=== PATIENT | male | born 1960 | race Caucasian/White ===

== ENCOUNTER 2017-11-01 17:57 | Emergency (ER) | payer MEDICAID ==
[2017-11-01 18:19] VITALS: TEMP 97.2
[2017-11-01] MEDS ORDERED: LORAZEPAM 2 MG/ML 10ML MDV 2 MG/ML VIAL IV PRN (18:20)
[2017-11-01] MEDS ORDERED: ONDANSETRON HCL 4 MG/2 ML 4 MG in SODIUM CHLORIDE 0.9% 100 ML 100 ML IV ONE (18:20)
[2017-11-01] MEDS ORDERED: SODIUM CHLORIDE 0.9% 1000ML 1,000 ML IV ONE (18:20)
[2017-11-01] MEDS ORDERED: ONDANSETRON HCL 4 MG/2 ML SOL IV ONE (18:23)
[2017-11-01] MEDS ORDERED: LORAZEPAM 2 MG/ML SOL ONE (18:24)
[2017-11-01] MEDS ORDERED: ONDANSETRON HCL 4 MG/2 ML SOL ONE (18:24)
[2017-11-01] MEDS ORDERED: HYDRALAZINE HYDROCHLORIDE 20 MG/ML SOL IV PRN ×2 (18:42→19:27)
[2017-11-01 19:01] LABS: BASOPHILS % (AUTO) 1 % (0-3); EOSINOPHILS % (AUTO) 0 % (0-9); HEMATOCRIT 45 % (39-53); MEAN CORPUSCULAR HGB CONC 34.2 gm/dl (32.0-36.0); MEAN CORPUSCULAR VOLUME 86 fL (80-100); MONOCYTES % (AUTO) 6.6 % (0-12); NEUTROPHILS % (AUTO) 83.7 % (37-80)
[2017-11-01 19:17] LABS: ALBUMIN 3.5 gm/dl (3.4-5.0); CALCIUM 8.4 mg/dl (8.5-10.1); POTASSIUM 4.3 mMol/L (3.5-5.1)
[2017-11-01] MEDS ORDERED: HYDRALAZINE HYDROCHLORIDE 20 MG/ML SOL ONE (19:29)
[2017-11-01] MEDS ORDERED: ALPRAZOLAM 0.25 MG TAB PO ONE (20:12)
[2017-11-01] MEDS ORDERED: ALPRAZOLAM 0.25 MG TAB ONE (20:15)
[2017-11-01 20:46] VITALS: BP 167/99; PULSE 104; RESP 20; O2SAT 99
== END 2017-11-01 20:26 | disposition home or self-care (01) | DRG 880 ==
LOC: ED 17:57
DX: F41.9 Anxiety disorder, unspecified (principal); I10 Essential (primary) hypertension; R10.9 Unspecified abdominal pain; R11.2 Nausea with vomiting, unspecified
CPT/HCPCS: 36415; 80053; 85025; 96365; 96374; 96375; 99285; J0360; J2060; J2405; A9270-GY

== ENCOUNTER 2017-12-14 07:15 | Day surgery (SDC) | payer MEDICAID, OTHER ==
[2017-12-14] MEDS ORDERED: PROPOFOL 500 MG/50 ML EMU IV ONE ×2 (07:19→08:48)
[2017-12-14] MEDS ORDERED: MIDAZOLAM 2 MG/2 ML SOL ONE (08:32)
[2017-12-14] MEDS ORDERED: PROPOFOL 10 MG/ML EMU IV ONE (08:48)
[2017-12-14 09:27] VITALS: RESP 16
[2017-12-14 09:37] VITALS: BP 133/89; PULSE 70; TEMP 97; O2SAT 97
== END 2017-12-14 10:05 | disposition home or self-care (01) | DRG 379 ==
LOC: SURG 07:15
PROVIDERS: ATTEND Surgery
DX: K62.5 Hemorrhage of anus and rectum (principal); D12.2 Benign neoplasm of ascending colon; K64.4 Residual hemorrhoidal skin tags; K57.30 Diverticulosis of large intestine without perforation or abscess without bleeding; D12.5 Benign neoplasm of sigmoid colon; D12.3 Benign neoplasm of transverse colon
CPT/HCPCS: 82962; J2250; J2704

== ENCOUNTER 2018-04-20 11:35 | Emergency (ER) | payer OTHER, BC ==
[2018-04-20 11:36] VITALS: O2SAT 97
[2018-04-20 12:06] VITALS: BP 140/94; PULSE 78; RESP 20; TEMP 98.8
[2018-04-20] MEDS ORDERED: LIDOCAINE HCL 2% (VISCOUS) 20 ML SOL MT ONE (12:26)
[2018-04-20] MEDS ORDERED: PANTOPRAZOLE SODIUM 40 MG ECT PO ONE ×2 (12:26→12:37)
[2018-04-20] MEDS ORDERED: ALUMINUM/MAGNESIUM 30 ML SUS PO ONE (12:26)
[2018-04-20] MEDS ORDERED: ACETAMINOPHEN 325 MG PO ONE (12:28)
[2018-04-20] MEDS ORDERED: ALUMINUM/MAGNESIUM 30 ML SUS ONE (12:37)
[2018-04-20] MEDS ORDERED: LIDOCAINE HCL 2% (VISCOUS) 20 ML SOL ONE (12:38)
[2018-04-20] MEDS ORDERED: ACETAMINOPHEN 325 MG ONE (12:38)
[2018-04-20 13:08] LABS: BASOPHILS % (AUTO) 1 % (0-3); EOSINOPHILS % (AUTO) 1 % (0-9); HEMATOCRIT 44 % (39-53); HEMOGLOBIN 14.3 gm/dl (13.5-17.7); LYMPHOCYTES % (AUTO) 13.66 % (10-50); MEAN CORPUSCULAR HEMOGLOBIN 29.3 pg (27.0-32.0); MEAN CORPUSCULAR HGB CONC 32.8 gm/dl (32.0-36.0); MEAN CORPUSCULAR VOLUME 89 fL (80-100); MONOCYTES % (AUTO) 6.6 % (0-12); NEUTROPHILS % (AUTO) 77.8 % (37-80)
[2018-04-20 13:19] LABS: ALBUMIN 3.4 gm/dl (3.4-5.0); BILIRUBIN,TOTAL 0.3 mg/dl (0.2-1.0); CALCIUM 8.3 mg/dl (8.5-10.1); CARBON DIOXIDE 28.5 mEq/L (21-32); CREATININE 0.81 mg/dl (0.80-1.30); POTASSIUM 3.9 mMol/L (3.5-5.1); TOTAL PROTEIN 6.9 gm/dl (6.4-8.2)
[2018-04-20 13:19] LABS: APPEARANCE,URINE Clear; BILIRUBIN,URINE NEGATIVE (NEGATIVE); COLOR,URINE Yellow; GLUCOSE, URINE (UA) 2+ (NEGATIVE); KETONES,URINE NEGATIVE (NEGATIVE); LEUKOCYTE ESTERASE ,URINE NEGATIVE (NEGATIVE); NITRATE,URINE NEGATIVE (NEGATIVE); OCCULT BLOOD,URINE TRACE INTACT (NEG-TRACE); UROBILINOGEN,URINE 0.2 (0.2-1.0 EU)
[2018-04-20 13:29] LABS: EPITHELIAL CELLS 0-1 (SQUAMOUS); RBC,URINE 0-3 (0-3AV/HPF); WBC,URINE NEG (0-5AV/HPF)
[2018-04-20 13:30] LABS: BACTERIA RARE (< 1+); CRYSTALS NEGATIVE (0-3 AVE/HPF)
== END 2018-04-20 14:30 | disposition home or self-care (01) | DRG 392 ==
LOC: ED 11:35
DX: R10.13 Epigastric pain (principal); K21.9 Gastro-esophageal reflux disease without esophagitis; V43.52XA Car driver injured in collision with other type car in traffic accident, initial encounter
CPT/HCPCS: 36415; 71046; 80053; 81001; 85025; 99282; 99283; A9270-GY

== ENCOUNTER 2018-04-23 12:11 | Emergency (ER) | payer OTHER, BC ==
[2018-04-23 12:27] LABS: BASOPHILS % (AUTO) 0 % (0-3); EOSINOPHILS % (AUTO) 0 % (0-9); HEMATOCRIT 48 % (39-53); HEMOGLOBIN 15.7 gm/dl (13.5-17.7); LYMPHOCYTES % (AUTO) 8.118 % (10-50); MEAN CORPUSCULAR HEMOGLOBIN 28.9 pg (27.0-32.0); MEAN CORPUSCULAR HGB CONC 32.5 gm/dl (32.0-36.0); MEAN CORPUSCULAR VOLUME 89 fL (80-100); MONOCYTES % (AUTO) 4.3 % (0-12); NEUTROPHILS % (AUTO) 87.1 % (37-80)
[2018-04-23] MEDS ORDERED: LORAZEPAM 2 MG/ML SOL IV ONE (12:38)
[2018-04-23] MEDS ORDERED: LORAZEPAM 2 MG/ML SOL ONE (12:43)
[2018-04-23] MEDS ORDERED: SODIUM CHLORIDE 0.9% 1000ML 1,000 ML IV SCH (12:45)
[2018-04-23 12:49] LABS: ALBUMIN 3.8 gm/dl (3.4-5.0); ALKALINE PHOSPHATASE 77 IU/L (46-116); ALT 30 IU/L (14-63); AST 16 IU/L (15-37); BILIRUBIN,TOTAL 0.7 mg/dl (0.2-1.0); BLOOD UREA NITROGEN 25 mg/dl (7-18); CALCIUM 8.8 mg/dl (8.5-10.1); CARBON DIOXIDE 20.9 mEq/L (21-32); CHLORIDE 96 mMol/L (98-107); CREATININE 1.06 mg/dl (0.80-1.30); POTASSIUM 4.2 mMol/L (3.5-5.1); SODIUM 132 mMol/L (136-145); TOTAL PROTEIN 7.9 gm/dl (6.4-8.2); TROP I < 0.017 ng/ml (0.000-0.056)
[2018-04-23 12:50] LABS: GLUCOSE 443 mg/dl (74-106)
[2018-04-23] MEDS ORDERED: INSULIN HUMAN REGULAR 100 U/ML SOL SC ONE (12:55)
[2018-04-23] MEDS ORDERED: LABETALOL HYDROCHLORIDE 5 MG/ML SOL IV ONE ×2 (12:57→13:01)
[2018-04-23] MEDS ORDERED: INSULIN HUMAN REGULAR 100 U/ML SOL ONE (13:02)
[2018-04-23 13:18] VITALS: TEMP 99.4
[2018-04-23 14:41] VITALS: BP 134/84; PULSE 83; RESP 24; O2SAT 94
== END 2018-04-23 14:52 | disposition home or self-care (01) | DRG 880 ==
LOC: ED 12:11
DX: F41.9 Anxiety disorder, unspecified (principal); R03.0 Elevated blood-pressure reading, without diagnosis of hypertension; E11.8 Type 2 diabetes mellitus with unspecified complications; R07.89 Other chest pain
CPT/HCPCS: 80053; 82009; 82962; 84484; 85025; 93005; 96365; 96372; 96374; 96375; 99284; 99285; J1815; J2060; J3490

== ENCOUNTER 2018-04-26 07:28 | Emergency (ER) | payer OTHER, BC ==
[2018-04-26] MEDS ORDERED: ASPIRIN 81 MG CHEWABLE CTB PO ONE (07:38)
[2018-04-26] MEDS ORDERED: LORAZEPAM 2 MG/ML SOL IV ONE (07:38)
[2018-04-26] MEDS ORDERED: LORAZEPAM 2 MG/ML SOL ONE (07:42)
[2018-04-26] MEDS ORDERED: ASPIRIN 81 MG CHEWABLE CTB ONE (07:42)
[2018-04-26 07:52] LABS: BASOPHILS % (AUTO) 1 % (0-3); EOSINOPHILS % (AUTO) 1 % (0-9); HEMATOCRIT 50 % (39-53); HEMOGLOBIN 16.2 gm/dl (13.5-17.7); LYMPHOCYTES % (AUTO) 15.65 % (10-50); MEAN CORPUSCULAR HEMOGLOBIN 28.7 pg (27.0-32.0); MEAN CORPUSCULAR HGB CONC 32.3 gm/dl (32.0-36.0); MEAN CORPUSCULAR VOLUME 89 fL (80-100); MONOCYTES % (AUTO) 7.4 % (0-12); NEUTROPHILS % (AUTO) 75.3 % (37-80)
[2018-04-26 08:03] LABS: ALBUMIN 3.5 gm/dl (3.4-5.0); ALKALINE PHOSPHATASE 77 IU/L (46-116); ALT 34 IU/L (14-63); AST 17 IU/L (15-37); BILIRUBIN,TOTAL 0.4 mg/dl (0.2-1.0); BLOOD UREA NITROGEN 20 mg/dl (7-18); CALCIUM 8.7 mg/dl (8.5-10.1); CARBON DIOXIDE 26.5 mEq/L (21-32); CHLORIDE 95 mMol/L (98-107); CREATININE 1.01 mg/dl (0.80-1.30); GLUCOSE 252 mg/dl (74-106); SODIUM 131 mMol/L (136-145); TOTAL PROTEIN 7.5 gm/dl (6.4-8.2); TROP I < 0.017 ng/ml (0.000-0.056)
[2018-04-26] MEDS ORDERED: METOPROLOL TARTRATE 5 MG/5 ML SOL IV ONE ×4 (08:59→09:38)
[2018-04-26] MEDS ORDERED: ONDANSETRON HCL 4 MG/2 ML SOL IV ONE (08:59)
[2018-04-26] MEDS ORDERED: ONDANSETRON HCL 4 MG/2 ML SOL ONE (09:00)
[2018-04-26] MEDS: SODIUM CHLORIDE 0.9% FLUSH 10 ML SOL IV PRN ×3 (09:07→10:13)
[2018-04-26 09:15] VITALS: TEMP 98.8
[2018-04-26] MEDS ORDERED: DILTIAZEM 5 MG/ML SOL IV ONE ×2 (10:03→10:05)
[2018-04-26 10:17] VITALS: O2SAT 94
[2018-04-26] MEDS ORDERED: PROCHLORPERAZINE EDISYLATE 5 MG/ML SOL IM ONE (10:36)
[2018-04-26] MEDS ORDERED: PROCHLORPERAZINE EDISYLATE 5 MG/ML SOL ONE (10:38)
[2018-04-26] MEDS ORDERED: ALPRAZOLAM 0.25 MG TAB ONE (10:41)
[2018-04-26] MEDS ORDERED: PROCHLORPERAZINE EDISYLATE 5 MG/ML SOL IV ONE (10:44)
[2018-04-26 11:55] VITALS: BP 175/109; PULSE 64; RESP 20
[2018-04-26] MEDS ORDERED: ALPRAZOLAM 0.25 MG TAB PO SCH (21:00)
== END 2018-04-26 11:48 | disposition home or self-care (01) | DRG 880 ==
LOC: ED 07:28
DX: F41.9 Anxiety disorder, unspecified (principal); I10 Essential (primary) hypertension
CPT/HCPCS: 80053; 82962; 83880; 84484; 85025; 93005; 96374; 96375; 99284; 99285; J0780; J2060; J2405; A9270-GY; J3490

== ENCOUNTER 2018-05-04 10:42 | Day surgery (SDC) | payer BC ==
[2018-05-04] MEDS ORDERED: DEXTROSE 50% 1 VIAL SOL IV ONE (12:01)
[2018-05-04] MEDS ORDERED: MIDAZOLAM 2 MG/2 ML SOL ONE (13:12)
[2018-05-04] MEDS ORDERED: FENTANYL 100MCG/2ML SOL ONE (13:13)
[2018-05-04] MEDS: DEXAMETHASONE SOD PHOS PF 10 MG/ML SOL IJ ONE ×2 (13:27→13:32)
[2018-05-04 13:39] VITALS: BP 130/87; PULSE 62; RESP 20; TEMP 97; O2SAT 95
== END 2018-05-04 14:23 | disposition home or self-care (01) ==
LOC: SURG 10:42
PROVIDERS: ATTEND Nurse Anesthetist, Certified Registered
DX: M54.12 Radiculopathy, cervical region (principal)
CPT/HCPCS: 82962; J2250; J2795; J3010; J1100

== ENCOUNTER 2019-03-13 05:07 | Inpatient (IN) | payer BC ==
[2019-03-13] MEDS ORDERED: ACETAMINOPHEN 500 MG 500 MG TAB PO ONE (05:29)
[2019-03-13] MEDS ORDERED: ACETAMINOPHEN 500 MG 500 MG TAB ONE (05:48)
[2019-03-13 05:54] LABS: BASOPHILS % (AUTO) 1 % (0-3); EOSINOPHILS % (AUTO) 0 % (0-9); HEMATOCRIT 44 % (39-53); HEMOGLOBIN 14.9 gm/dl (13.5-17.7); LYMPHOCYTES % (AUTO) 4.7 % (10-50); MEAN CORPUSCULAR HEMOGLOBIN 29.4 pg (27.0-32.0); MEAN CORPUSCULAR HGB CONC 33.5 gm/dl (32.0-36.0); MEAN CORPUSCULAR VOLUME 88 fL (80-100); MONOCYTES % (AUTO) 8.5 % (0-12); NEUTROPHILS % (AUTO) 86.1 % (37-80)
[2019-03-13 06:27] LABS: LACTIC ACID 1.7 mMol/L (0.0-2.0)
[2019-03-13 06:29] LABS: APPEARANCE,URINE Clear; BILIRUBIN,URINE NEGATIVE (NEGATIVE); COLOR,URINE Yellow; GLUCOSE, URINE (UA) 2+ (NEGATIVE); KETONES,URINE TRACE (NEGATIVE); LEUKOCYTE ESTERASE ,URINE NEGATIVE (NEGATIVE); NITRATE,URINE NEGATIVE (NEGATIVE); OCCULT BLOOD,URINE NEGATIVE (NEG-TRACE); PH,URINE 5.5; UROBILINOGEN,URINE 0.2 (0.2-1.0 EU)
[2019-03-13 06:32] LABS: BILIRUBIN,TOTAL 0.4 mg/dl (0.2-1.0); CALCIUM 8.7 mg/dl (8.5-10.1); CARBON DIOXIDE 24.2 mEq/L (21-32); CREATININE 1.07 mg/dl (0.80-1.30); POTASSIUM 3.5 mMol/L (3.5-5.1)
[2019-03-13 06:33] LABS: ALBUMIN 3.4 gm/dl (3.4-5.0); TOTAL PROTEIN 7.3 gm/dl (6.4-8.2)
[2019-03-13 06:39] LABS: BACTERIA RARE (< 1+); CRYSTALS NEGATIVE (0-3 AVE/HPF); EPITHELIAL CELLS 0-2 (SQUAMOUS); RBC,URINE 0-2 (0-3AV/HPF); WBC,URINE 0-2 (0-5AV/HPF)
[2019-03-13] MEDS ORDERED: SODIUM CHLORIDE 0.9% 500 ML 500 ML IV ONE (06:43)
[2019-03-13] MEDS: SODIUM CHLORIDE 0.9% FLUSH 10 ML SOL IV PRN (06:56)
[2019-03-13] MEDS ORDERED: FENTANYL 100MCG/2ML SOL IV ONE (07:21)
[2019-03-13] MEDS ORDERED: LORAZEPAM 0.5 MG TAB PO PRN (07:21)
[2019-03-13] MEDS ORDERED: NOVOLOG FLEXPEN SC SCH (09:00)
[2019-03-13] MEDS: NOVOLOG FLEXPEN SC SCH ×4 (09:16→21:32)
[2019-03-13] MEDS: OXYCODONE HYDROCHLORIDE 5 MG TAB PO PRN ×3 (09:16→21:38)
[2019-03-13] MEDS: FLUOXETINE HYDROCHLORIDE 10 MG CAP PO SCH (09:21)
[2019-03-13] MEDS: METFORMIN HYDROCHLORIDE 500 MG TAB PO SCH ×2 (09:24→21:21)
[2019-03-13] MEDS: HYDROCHLOROTHIAZIDE 25 MG TAB PO SCH (11:53)
[2019-03-13] MEDS: HUMULIN N PEN 100 U/ML SC SCH ×2 (12:13→18:05)
[2019-03-13 14:24] LABS: CALCIUM 8.7 mg/dl (8.5-10.1); CARBON DIOXIDE 24.1 mEq/L (21-32); CREATININE 0.97 mg/dl (0.80-1.30)
[2019-03-14 07:40] LABS: CALCIUM 8.8 mg/dl (8.5-10.1); CARBON DIOXIDE 30.2 mEq/L (21-32); CREATININE 0.96 mg/dl (0.80-1.30); POTASSIUM 3.9 mMol/L (3.5-5.1)
[2019-03-14] MEDS: NOVOLOG FLEXPEN SC SCH ×4 (08:11→21:19)
[2019-03-14] MEDS: HUMULIN N PEN 100 U/ML SC SCH ×2 (08:11→17:31)
[2019-03-14] MEDS ORDERED: LIDOCAINE 1% W/EPI MPF 30 ML SOL INFIL ONE (08:18)
[2019-03-14] MEDS: SODIUM CHLORIDE 0.9% FLUSH 10 ML SOL IV PRN ×3 (08:57→23:30)
[2019-03-14] MEDS: HYDROCHLOROTHIAZIDE 25 MG TAB PO SCH (09:25)
[2019-03-14] MEDS: METFORMIN HYDROCHLORIDE 500 MG TAB PO SCH ×2 (09:25→21:21)
[2019-03-14] MEDS: FLUOXETINE HYDROCHLORIDE 10 MG CAP PO SCH (09:25)
[2019-03-14] MEDS: HYDROMORPHONE 1 MG/ML SYRINGE IV PRN ×2 (09:25→23:28)
[2019-03-14] MEDS: CEPHALEXIN 250 MG/5 ML BOTTLE PO SCH ×2 (11:21→17:33)
[2019-03-14] MEDS: APAP/HYDROCODONE 1 EACH TABLET PO PRN ×3 (11:47→21:54)
[2019-03-14] MEDS: SODIUM CHLORIDE 0.9% FLUSH 10 ML SOL IV SCH ×2 (13:46→21:14)
[2019-03-15] MEDS: CEPHALEXIN 250 MG/5 ML BOTTLE PO SCH ×3 (02:34→18:52)
[2019-03-15] MEDS: SODIUM CHLORIDE 0.9% FLUSH 10 ML SOL IV SCH ×3 (05:20→21:02)
[2019-03-15] MEDS: APAP/HYDROCODONE 1 EACH TABLET PO PRN ×3 (06:39→17:33)
[2019-03-15 08:19] LABS: BASOPHILS % (AUTO) 1 % (0-3); EOSINOPHILS % (AUTO) 0 % (0-9); HEMATOCRIT 46 % (39-53); HEMOGLOBIN 14.8 gm/dl (13.5-17.7); LYMPHOCYTES % (AUTO) 9.1 % (10-50); MEAN CORPUSCULAR HEMOGLOBIN 28.5 pg (27.0-32.0); MEAN CORPUSCULAR HGB CONC 32.2 gm/dl (32.0-36.0); MEAN CORPUSCULAR VOLUME 88 fL (80-100); MONOCYTES % (AUTO) 6.1 % (0-12); NEUTROPHILS % (AUTO) 83.9 % (37-80)
[2019-03-15 08:26] LABS: CALCIUM 8.4 mg/dl (8.5-10.1); CARBON DIOXIDE 28.4 mEq/L (21-32); CREATININE 0.99 mg/dl (0.80-1.30); POTASSIUM 3.8 mMol/L (3.5-5.1)
[2019-03-15] MEDS: HUMULIN N PEN 100 U/ML SC SCH ×2 (08:30→17:35)
[2019-03-15] MEDS: NOVOLOG FLEXPEN SC SCH ×4 (08:31→21:05)
[2019-03-15] MEDS: METFORMIN HYDROCHLORIDE 500 MG TAB PO SCH ×2 (08:34→21:01)
[2019-03-15] MEDS: FLUOXETINE HYDROCHLORIDE 10 MG CAP PO SCH (08:34)
[2019-03-15] MEDS: HYDROCHLOROTHIAZIDE 25 MG TAB PO SCH (08:34)
[2019-03-15 08:45] LABS: CRP INFLAMMATORY 24.94 mg/dl (0.00-0.33)
[2019-03-15] MEDS: SENNOSIDES A AND B 8.6 MG TAB PO SCH (10:35)
[2019-03-15 23:26] VITALS: RESP 18
[2019-03-16] MEDS: CEPHALEXIN 250 MG/5 ML BOTTLE PO SCH ×2 (02:31→09:17)
[2019-03-16] MEDS: APAP/HYDROCODONE 1 EACH TABLET PO PRN (02:36)
[2019-03-16] MEDS: SODIUM CHLORIDE 0.9% FLUSH 10 ML SOL IV SCH (06:18)
[2019-03-16 07:14] VITALS: O2SAT 99
[2019-03-16 07:17] LABS: BASOPHILS % (AUTO) 1 % (0-3); EOSINOPHILS % (AUTO) 0 % (0-9); HEMATOCRIT 46 % (39-53); HEMOGLOBIN 14.7 gm/dl (13.5-17.7); LYMPHOCYTES % (AUTO) 6.7 % (10-50); MEAN CORPUSCULAR HEMOGLOBIN 28.4 pg (27.0-32.0); MEAN CORPUSCULAR HGB CONC 31.9 gm/dl (32.0-36.0); MEAN CORPUSCULAR VOLUME 89 fL (80-100); MONOCYTES % (AUTO) 6.8 % (0-12); NEUTROPHILS % (AUTO) 85.8 % (37-80)
[2019-03-16 07:29] LABS: CALCIUM 9.1 mg/dl (8.5-10.1); CARBON DIOXIDE 30.9 mEq/L (21-32); CREATININE 1.05 mg/dl (0.80-1.30); CRP INFLAMMATORY 23.71 mg/dl (0.00-0.33); POTASSIUM 3.8 mMol/L (3.5-5.1)
[2019-03-16] MEDS: HYDROCHLOROTHIAZIDE 25 MG TAB PO SCH ×2 (07:41→08:00)
[2019-03-16] MEDS: LOSARTAN POTASSIUM 50 MG TAB PO SCH ×2 (07:41→08:00)
[2019-03-16] MEDS: NOVOLOG FLEXPEN SC SCH (07:44)
[2019-03-16] MEDS: FLUOXETINE HYDROCHLORIDE 10 MG CAP PO SCH (08:03)
[2019-03-16] MEDS: SENNOSIDES A AND B 8.6 MG TAB PO SCH (08:03)
[2019-03-16] MEDS: METFORMIN HYDROCHLORIDE 500 MG TAB PO SCH (08:03)
[2019-03-16] MEDS ORDERED: INFLUENZA VIRUS VACCINE 0.5 ML SUS IM ONE (08:16)
[2019-03-16] MEDS ORDERED: PNEUMOCOCCAL VACCINE 0.5 ML SOL IM ONE (08:16)
[2019-03-16] MEDS: HUMULIN N PEN 100 U/ML SC SCH (08:47)
[2019-03-16 09:29] VITALS: BP 174/101; PULSE 92; TEMP 98
== END 2019-03-16 09:25 | disposition home or self-care (01) | DRG 425 ==
LOC: ED 05:07 → ACUTE CARE 07:05
PROVIDERS: ADMIT Family Medicine; ATTEND Family Medicine
DX: E87.1 Hypo-osmolality and hyponatremia (principal); E11.00 Type 2 diabetes mellitus with hyperosmolarity without nonketotic hyperglycemic-hyperosmolar coma (NKHHC); M25.531 Pain in right wrist; M25.561 Pain in right knee; Z79.4 Long term (current) use of insulin; R06.02 Shortness of breath; M70.41 Prepatellar bursitis, right knee; I10 Essential (primary) hypertension
CPT/HCPCS: 36415; 73110; 73562; 80048; 80053; 80307; 81001; 82962; 84300; 84550; 85025; 85651; 87070; 87075; 87077; 87186; 87205; 89051; 90686; 90732; 99223; 99284; J3010; A9270-GY; G0008; J1170; J1815